=== PATIENT | female | born 1960 | race Caucasian/White ===

== ENCOUNTER 2017-04-28 06:18 | Emergency (ER) | payer SELFPAY ==
[~2017-04-28] VITALS: Ht 167.6 cm; Wt 87.4 kg
[~2017-04-28 06:18] MED LIST: CARAFATE1 GM PO; CLARITIN10 MG PO; FLEXERIL10 MG PO; LORTAB 5-325 M1 EACH PO; MOTRIN600 MG PO; MOTRIN800 MG PO; OXAYDO5 MG PO; PEN-VEE K,VEET500 MG PO; PERCOCET 5/31 TABLET PO; PRILOSEC20 MG PO; REGLAN10 MG PO; TEGRETOL200 MG PO; VICODIN 5-3001 EACH PO; ZYRTEC5 MG PO
[2017-04-28] MEDS ORDERED: AMOXICILLIN500 M1 PO (06:42)
[2017-04-28] MEDS ORDERED: TYLENOL WITH C1 EACH PO (06:42)
[2017-04-28 07:03] VITALS: BP 122/98
== END 2017-04-28 07:41 | disposition home or self-care (01) ==
LOC: EME 06:18
DX: K05.10 Chronic gingivitis, plaque induced (principal); F17.200 Nicotine dependence, unspecified, uncomplicated
CPT/HCPCS: 99281; 99283